=== PATIENT | female | born 1990 | race Caucasian/White ===

== ENCOUNTER 2019-07-27 18:57 | Emergency (ER) | payer OTHER ==
[2019-07-27] MEDS ORDERED: PROPARACAINE 0.5% OPHTH DROPS 15 ML BTL LEFT EYE STA (21:53)
[2019-07-27] MEDS ORDERED: TOBRA-DEXAMET 0.3-0.1% OPHTH DROPS 2.5 ML BTL LEFT EYE STA (23:21)
--- NOTE | 2019-07-27 23:22 | ED ---
ENT HPI - General Chief complaint: ENT Stated complaint: eye swelling/blurred vision & memory problems Time Seen by Provider: 07/27/19 20:49 Source: patient Mode of arrival: ambulatory Limitations: no limitations - History of Present Illness Initial comments: 29-year-old female patient presents to the emergency department today for evaluation of pain and redness to the left eye. Patient states pain started 3 days ago. States that she was seen and evaluated at [facility] and diagnosed with conjunctivitis and given ofloxacin drops. Patient states she's been using the drops for 2 days and her symptoms seem to be worsening. Patient states she is having blurred vision to the left eye. States she feels a sharp stabbing sensation to the eye. She reports sensitivity to light. Patient denies history of similar symptoms. Denies any drainage from the eye. Denies fever or chills. Denies any known injury. She does admit to sleeping in her contacts. Patient's mother does have glaucoma. Patient denies any recent rash, fever, chills, shortness breath, chest pain, abdominal pain, nausea, vomiting, diarrhea, constipation, back pain, numbness, tingling, dizziness, weakness, hematuria, dysuria, urinary urgency, urinary frequency, or any other complaints. - Related Data Allergies Allergy/AdvReac Type Severity Reaction Status Date / Time No Known Allergies Allergy Verified 07/27/19 19:13 Review of Systems ROS Statement: Those systems with pertinent positive or pertinent negative responses have been documented in the HPI. ROS Other: All systems not noted in ROS Statement are negative. Past Medical History Past Medical History: No Reported History History of Any Multi-Drug Resistant Organisms: None Reported Past Surgical History: Section Past Psychological History: Anxiety, Depression Smoking Status: Never smoker Past Alcohol Use History: Occasional Past Drug Use History: None Reported General Exam Limitations: no limitations General appearance: alert, in no apparent distress, other (This is a well- developed, well-nourished adult female patient in no acute distress. Vital signs upon presentation are temperature 98.3F, pulse 79, respirations 16, blood pressure 144/93, pulse ox 96% on room air.) Eye exam: Present: PERRL, EOMI, conjunctival injection (Mild left conjunctival injection), other (Fluorescein stain with Wood's lamp examination was performed, there is no evidence for corneal abrasion, ulcer, or laceration. Pressure to the right eye was 25 mmHg, pressure to the left eye was 21 mmHg. Slit lamp examination performed by Dr. Pinedo, no evidence for eye injury.). Absent: scleral icterus, periorbital swelling ENT exam: Present: normal exam, normal oropharynx Respiratory exam: Present: normal lung sounds bilaterally. Absent: respiratory distress, wheezes, rales, rhonchi, stridor Cardiovascular Exam: Present: regular rate, normal rhythm, normal heart sounds. Absent: systolic murmur, diastolic murmur, rubs, gallop, clicks GI/Abdominal exam: Present: soft, normal bowel sounds. Absent: distended, tenderness, guarding, rebound, rigid Neurological exam: Present: alert, oriented X3, CN II-XII intact, other (Strength in all 4 extremities is 5/5.) Psychiatric exam: Present: normal affect, normal mood Skin exam: Present: warm, dry, intact, normal color. Absent: rash Course Vital Signs 07/27/19 19:11 Temperature 98.3 F Pulse Rate 79 Respiratory 16 Rate Blood Pressure 144/93 O2 Sat by Pulse 96 Oximetry Medical Decision Making - Medical Decision Making 29-year-old female patient percents into the emergency department today for evaluation of left eye pain and visual disturbance. Physical examination did reveal some mild conjunctival injection to the left eye. Fluorescein stain with Wood's lamp exam was performed and showed no evidence for corneal injury. Pressure to the right eye was 25 mmHg, pressure to the left eye was [address] Pinedo was in and performed slit lamp examination with no abnormal findings. We were unable to identify specific cause for patient's symptoms however reaction to ofloxacin drops and iritis are in the differential. We will start TobraDex drops and have her follow-up with ophthalmology in the morning. Return parameters were discussed in detail. She verbalizes understanding and agrees with this plan. Disposition Clinical Impression: Left eye pain, Conjunctivitis Disposition: HOME SELF-CARE Condition: Good Instructions (If sedation given, give patient instructions): Antibiotic/Anti- inflammatory Combinations (Into the eye), Eye Pain (ED), Conjunctivitis (ED) Additional Instructions: Follow-up with the market relationship manager for further evaluation tomorrow. Take medications as directed. Return to the emergency department immediately for any new, worsening, or concerning symptoms. Is patient prescribed a controlled substance at d/c from ED?: No Referrals: Georgia Edmodns MD [Primary Care Provider] - 1-2 days Frank Cano MD [STAFF PHYSICIAN] - 1-2 days Time of Disposition: 23:21
[2019-07-28 00:05] VITALS: BP 136/84; PULSE 72; RESP 18; TEMP 98.1
== END 2019-07-28 00:05 | disposition home or self-care (01) ==
LOC: EC 18:57
DX: H10.9 Unspecified conjunctivitis (principal)
CPT/HCPCS: 99283